=== PATIENT | male | born 1950 | race Caucasian/White ===

== ENCOUNTER 2016-07-10 05:14 | Day surgery (SDC) | payer MEDICARE, OTHER ==
[2016-07-04 14:26] VITALS: BMI 19.3
[~2016-07-10 05:14] MED LIST: TRIAMCINOLONE ACET 40MG/1ML VIAL IJ ONE
[2016-07-10] MEDS ORDERED: ACETAMINOPHEN 325 MG TABLET (FP) PO PRN (07:51)
[2016-07-10] MEDS ORDERED: CIPROFLOXACIN HCL 0.3% OPHTH 2.5ML BOTTLE OP SCH (08:00)
[2016-07-10] MEDS ORDERED: CIPROFLOXACIN HCL 0.3% OPHTH 2.5ML BOTTLE OD ONE (09:25)
[2016-07-10] MEDS: CIPROFLOXACIN 0.3% EYE DROPS 5 ML BOTTLE ONE ×2 (09:30→09:35)
[2016-07-10 09:32] VITALS: TEMP 98.6
[2016-07-10] MEDS ORDERED: MIDAZOLAM HCL 2 MG/2 ML SINGLE DOSE VIAL ONE (10:20)
[2016-07-10] MEDS ORDERED: LIDOCAINE 1%/EPI 1:100000 (50 ML MULTI DOSE VIAL) INF ONE (10:37)
[2016-07-10] MEDS ORDERED: TRIAMCINOLONE ACET 40MG/1ML VIAL ONE (10:53)
[2016-07-10 12:16] VITALS: BP 130/70; PULSE 70
--- NOTE | 2016-07-10 12:20 | OP ---
DATE OF OPERATION: DATE OF DICTATION: 07/10/2016 PREOPERATIVE DIAGNOSIS: Pterygium, right eye. POSTOPERATIVE DIAGNOSIS: Pterygium, right eye. PROCEDURE: Excision of pterygium with conjunctival autograft, right eye. ANESTHESIA: Topical MAC. COMPLICATIONS: None. PROCEDURE: The patient was brought to the operating room and correctly identified along with the operative site. He was then prepped and draped in the usual sterile fashion, including 5% Betadine solution in the conjunctival sac and an eyelid drape. An eyelid speculum was then placed into the right eye. The pterygium was inspected, and the base of the pterygium was marked with a marking pen. Two relaxing incisions were made superior and inferiorly, and dissection was taken place beneath the pterygium down to bare sclera. The pterygium was then freed from the corneal surface using blunt dissection with Colibri forceps as well as Weck-Isabel spear sponges and the sharp Casimiro scissors. Care was made not to get any deeper than Jones membrane. The residual corneal defect was polished using a 57 blade as well as a marybel bur. The pterygium was then excised at its base and the conjunctival defect measured 5 x 7 mm vertically and horizontally, respectively. Attention was then placed to the superior conjunctiva and a 6 x 8-mm area was marked using a marking pen on the conjunctiva and the conjunctiva was elevated with lidocaine 1% with epinephrine. The graft was then prepared and keeping its orientation brought to the nasal conjunctival defect and sutured in place with five 10-0 nylon interrupted sutures. The graft was noted to be well positioned, the corneal surface fairly clear, and topical vancomycin given along with a subconjunctival injection of Kenalog, an eye patch, and the patient discharged from the operating room in a stable condition. CAT VALERIO M.D. [id number]
--- NOTE | 2016-07-11 11:39 | PATH ---
Surgical Pathology Report Patient Name: MAHAD WALDRON [facility]. Rec. #: [id number] /Age/Gender: 1950 (Age: 66) / M Account: [id number] Location: [facility] SURGICAL Taken: 07/10/2016 Received: 07/10/2016 Reported: 07/11/2016 Physicians: Darien Bocanegra M.D. Specimen(s) Received PTERYGIUM OD Clinical History Pterygium Final Diagnosis CONJUNCTIVA, RIGHT EYE, PTERIGIUM, EXCISION: BENIGN CONJUNCTIVA WITH FOCAL ELASTIC DEGENERATION, FIBROSIS AND NEOVASCULARIZATION CONSISTENT WITH PTERIGIUM. Electronically Signed Tutu Galaviz M.D. Gross Description Received in formalin, labeled "pterygium OD" is a carrera, irregular portion of soft tissue measuring 0.5 cm in greatest dimension. The specimen is submitted in toto in one cassette. /07/10/201607/10/2016
== END 2016-07-10 12:17 | disposition home or self-care (01) ==
LOC: JASU-SURG 05:14
PROVIDERS: ATTEND Ophthalmology
PROC: 08U007Z Supplement of Right Eye with Autologous Tissue Substitute, Open Approach (ICD-10-PCS; 2016-07-10)
PROC: 08BSXZZ Excision of Right Conjunctiva, External Approach (ICD-10-PCS; principal; 2016-07-10 09:00)
DX: H11.001 Unspecified pterygium of right eye (principal)
CPT/HCPCS: 88304-TC

== ENCOUNTER 2016-07-31 09:44 | Day surgery (SDC) | payer MEDICARE, OTHER ==
[2016-07-30 13:21] VITALS: BMI 19.3
[~2016-07-31 09:44] MED LIST changes: +ACETAMINOPHEN 325 MG TABLET (FP) PO PRN; +CIPROFLOXACIN HCL 0.3% OPHTH 2.5ML BOTTLE OP SCH; +LIDOCAINE 1%/EPI 1:100000 (50 ML MULTI DOSE VIAL) INF ONE; +TETRACAINE 0.5% OPHTH SOLN 2 ML BOTTLE TP ONE; -TRIAMCINOLONE ACET 40MG/1ML VIAL IJ ONE; +TRIAMCINOLONE ACET 40MG/1ML VIAL IM ONE
[2016-07-31 10:09] VITALS: TEMP 98.6
[2016-07-31] MEDS: CIPROFLOXACIN 0.3% EYE DROPS 5 ML BOTTLE ONE ×3 (10:15→10:25)
[2016-07-31] MEDS ORDERED: LIDOCAINE 1%/EPI 1:100000 (50 ML MULTI DOSE VIAL) ONE (12:18)
[2016-07-31] MEDS ORDERED: MIDAZOLAM HCL 2 MG/2 ML SINGLE DOSE VIAL ONE (12:21)
[2016-07-31] MEDS ORDERED: LIDOCAINE 1%/EPI 1:100000 (50 ML MULTI DOSE VIAL) INF ONE (12:33)
[2016-07-31] MEDS ORDERED: TRIAMCINOLONE ACET 40MG/1ML VIAL ONE (12:34)
[2016-07-31] MEDS ORDERED: GLYCOPYRROLATE 0.2 MG/1 ML VIAL ONE ×5 (12:45→12:46)
[2016-07-31] MEDS ORDERED: TRIAMCINOLONE ACET 40MG/1ML VIAL IM ONE (12:59)
[2016-07-31 13:48] VITALS: BP 127/72; PULSE 70
--- NOTE | 2016-08-01 11:03 | OP ---
OPERATIVE REPORT DATE OF OPERATION: DATE OF DICTATION: 08/01/2016 PROCEDURE: Excision of left pterygium with conjunctival autograft, left eye PREOPERATIVE DIAGNOSIS: Pterygium left eye POSTOPERATIVE DIAGNOSIS: Pterygium left eye ANESTHESIA: Topical MAC COMPLICATIONS: None PROCEDURE: The patient was brought to the operating room and correctly identified along with the operative site. He was then prepped and draped in the usual sterile fashion, including 5% Betadine solution in the conjunctival sac and an eyelid drape. An eyelid speculum was then placed into the right eye. The border of the pterygium was marked with a marking pen. The two relaxing incisions were made superior and inferior on the pterygium. Dissection was then placed beneath the pterygium down to bare sclera. The pterygium was then freed from the corneal surface with blunt dissection using Casimiro scissors as well as colibri forceps. The corneal defect was then polished using a 57 blade. A mild anterior stromal haze was noted afterwards. The pterygium was then transected at its base, and the conjunctival defect measured 5 mm horizontally by 5.5 mm vertically. Attention was then placed to the superotemporal conjunctiva, and an appropriate sized conjunctival autograft was created using first lidocaine 1% injected subconjunctivally and then using Casimiro scissors to fashion the conjunctival autograft. The graft was then placed in its proper orientation in the conjunctival defect and sutured in place with four 10-0 Nylon interrupted sutures. The graft was noted to be well-secured and in good position. Subconjunctival Kenalog given, the eye patched, and the patient discharged from the operating room in stable condition. CAT VALERIO M.D. [id number] MTDD
--- NOTE | 2016-08-01 12:17 | PATH ---
Surgical Pathology Report Patient Name: MAHAD WALDRON [facility]. Rec. #: [id number] /Age/Gender: 1950 (Age: 66) / M Account: [id number] Location: [facility] SURGICAL Taken: 07/31/2016 Received: 07/31/2016 Reported: 08/01/2016 Physicians: Darien Bocanegra M.D. Specimen(s) Received PTERYGIUM, LEFT EYE Clinical History Pterygium left eye Final Diagnosis CONJUNCTIVA, LEFT EYE, PTERIGIUM, EXCISION: CONJUNCTIVA WITH FOCAL ELASTIC DEGENERATION, FIBROSIS AND NEOVASCULARIZATION CONSISTENT WITH PTERIGIUM. Electronically Signed Tutu Galaviz M.D. Gross Description Received in formalin, labeled "pterygium" is a carrera-red, irregular portion of soft tissue measuring 0.3 cm in greatest dimension. The specimen is submitted in toto in one cassette. /07/31/201607/31/2016
== END 2016-07-31 14:10 | disposition home or self-care (01) ==
LOC: JOR 09:44 → JASU-SURG 09:44
PROVIDERS: ATTEND Ophthalmology
PROC: 08U107Z Supplement of Left Eye with Autologous Tissue Substitute, Open Approach (ICD-10-PCS; principal; 2016-07-31 12:00)
DX: H11.002 Unspecified pterygium of left eye (principal)
CPT/HCPCS: 88304-TC

== ENCOUNTER 2017-11-11 09:59 | Day surgery (SDC) | payer OTHER ==
[2017-11-11 09:52] VITALS: BMI 20.2
[2017-11-11] MEDS ORDERED: LIDOCAINE HCL/PF 2% SDV 5ML VIAL ONE (11:38)
[2017-11-11] MEDS ORDERED: PROPOFOL 20 ML ONE ×2 (11:38)
[2017-11-11 12:18] VITALS: TEMP 97.6
[2017-11-11 14:06] VITALS: BP 149/74; PULSE 74
== END 2017-11-11 13:00 | disposition home or self-care (01) ==
LOC: JASU-ENDO 09:59
PROVIDERS: ATTEND Internal Medicine Gastroenterology
PROC: 0DJD8ZZ Inspection of Lower Intestinal Tract, Via Natural or Artificial Opening Endoscopic (ICD-10-PCS; principal; 2017-11-11 10:45)
DX: Z12.11 Encounter for screening for malignant neoplasm of colon (principal); K57.30 Diverticulosis of large intestine without perforation or abscess without bleeding; K64.8 Other hemorrhoids; Z86.010 Personal history of colon polyps